=== PATIENT | female | born 1985 | race Caucasian/White ===

== ENCOUNTER 2020-09-17 21:34 | Emergency (ER) | payer SELFPAY ==
[2020-09-17 21:58] VITALS: BP 143/89; RESP 18; TEMP 98.1
--- NOTE | 2020-09-17 22:01 | ED ---
Recheck HPI - General Chief Complaint: Recheck/Abnormal Lab/Rx Stated Complaint: Covid Test Time Seen by Provider: 09/17/20 22:00 Source: patient Mode of arrival: ambulatory Limitations: no limitations - History of Present Illness Initial Comments: 35-year-old male patient presents to the emergency department today requesting testing for COVID-19. Patient denies having any symptoms or known exposures but requires the test to [place] the border [place]. No physical concerns symptoms or concerns today. - Related Data Allergies Allergy/AdvReac Type Severity Reaction Status Date / Time No Known Allergies Allergy Verified 09/17/20 21:58 Review of Systems ROS Statement: Those systems with pertinent positive or pertinent negative responses have been documented in the HPI. ROS Other: All systems not noted in ROS Statement are negative. Past Medical History Past Medical History: No Reported History Past Surgical History: No Surgical Hx Reported Past Psychological History: No Psychological Hx Reported Smoking Status: Never smoker Past Alcohol Use History: None Reported Past Drug Use History: None Reported General Exam Limitations: no limitations General appearance: alert, in no apparent distress Neurological exam: Present: alert, oriented X3 Psychiatric exam: Present: normal affect, normal mood Skin exam: Present: warm, dry, intact, normal color. Absent: rash Course Vital Signs 09/17/20 21:56 Temperature 98.1 F Pulse Rate 68 Respiratory 18 Rate Blood Pressure 143/89 O2 Sat by Pulse 98 Oximetry Medical Decision Making - Medical Decision Making 35-year-old male patient presents to the emergency department today requesting testing for COVID-19. Patient denies having any symptoms or known exposures but requires the test to cross the border into [place]. No physical concerns symptoms or concerns today. He was tested and provided with results. My attending is Dr. Collier. Disposition Clinical Impression: Encounter for laboratory testing for COVID-19 virus Disposition: HOME SELF-CARE Condition: Good Is patient prescribed a controlled substance at d/c from ED?: No Referrals: None,Stated [Primary Care Provider] - 1-2 days
[2020-09-17 23:35] VITALS: PULSE 71
== END 2020-09-17 23:34 | disposition home or self-care (01) ==
LOC: EC 21:34
DX: Z20.822 Contact with and (suspected) exposure to COVID-19 (principal)
CPT/HCPCS: 87635; 99282